=== PATIENT | male | born 1940 | race Caucasian/White ===

== ENCOUNTER 2025-06-10 12:49 | Inpatient (IN) | payer MEDICARE ==
[~2025-06-10] VITALS: Ht 185.4 cm; Wt 82.4 kg
[~2025-06-10 12:49] MED LIST: ASPIRIN EC325 MG PO; CELECOXIB200 MG PO; GABAPENTIN300 MG PO; HEALTHYLAX17 GM PO; IRON325 M1 PO; MIRALAX17 GM PO; NUCYNTA50 MG PO; OXYCODONE HCL5 MG PO; SENNA LAX8.6 MG PO; TRAMADOL HCL50 MG PO; ULTRAM50 MG PO; VITAMIN C500 M1 PO; XARELTO10 MG PO
--- OUTSIDE RECORDS SUMMARY | 2025-06-10 12:57 | XMS ---
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 Cami VISIT COUNT (12 MO.) [address] TOTAL 5 NOTE: Visits indicate total known visits. ED/UCC VISIT TRACKING (12 MO.) 06/10/2025 12:50 [facility] [place] TYPE: Emergency COMPLAINT: - FALL 06/02/2025 12:31 [facility] [place] TYPE: Emergency DIAGNOSES: - Dehydration - Enterostomy malfunction - Rash and other nonspecific skin eruption - general 05/31/2025 08:40 [facility] [place] TYPE: Emergency DIAGNOSES: - Adverse effect of antineoplastic and immunosuppressive drugs, initial encounter - Agranulocytosis secondary to cancer chemotherapy - Enterostomy malfunction - Erythematous condition, unspecified - GENERAL 05/30/2025 15:52 [facility] [place] TYPE: Emergency DIAGNOSES: - Encounter for attention to unspecified artificial opening - Enterostomy malfunction - Neutropenia, unspecified - CATHETER LEAKING 05/29/2025 19:29 [facility] [place] TYPE: Emergency DIAGNOSES: - Enterostomy malfunction - General INPATIENT VISIT TRACKING (12 MO.) 06/02/2025 12:31 [facility] OR TYPE: Medical Surgical DIAGNOSES: - Dehydration - Enterostomy malfunction - Rash and other nonspecific skin eruption [email or web address]
[2025-06-10 13:20] LABS: MCH 30.2 PG (25.7-32.2); MCHC 33.7 g/dL (32.3-36.5); MCV 89.5 fL (79.0-92.2); RBC 4.21 M/uL (4.63-6.08)
[2025-06-10 13:31] LABS: ALT (SGPT) 22.0 U/L (14-59); AST (SGOT) 29.0 U/L (15-37); GLOMERULAR FILTRATION RATE,EST 66.0 mL/min (>60); PROTEIN, TOTAL 6.5 g/dL (6.4-8.2); UREA NITROGEN 35.0 mg/dL (7-18)
[2025-06-10 13:38] LABS: BANDS, MANUAL DIFF 4; LYMPHOCYTES, MANUAL DIFF 10; MONOCYTES, MANUAL DIFF 1; NEUTROPHILS, MANUAL DIFF 85
[2025-06-10] MEDS ORDERED: POTASSIUM CHLORIDE 20 MEQ/15 ML CUP PO ONE ×2 (14:15→16:15)
[2025-06-10] MEDS ORDERED: SODIUM CHLORIDE 0.9% 1,000 ML IV PRN ×2 (14:15→16:15)
[2025-06-10] MEDS ORDERED: POTASSIUM CHLORIDE 10 MEQ/100 ML BAG IV SCH (16:15)
[2025-06-10 17:37] LABS: BLOOD/HGB, URINE SMALL (Negative); KETONE, URINE NEGATIVE (Negative); LEUK ESTERASE, URINE MODERATE (negative); NITRITE, URINE POSITIVE (negative)
[2025-06-10 17:45] LABS: BACTERIA, URINE NONE SEEN /hpf (negative); CASTS, URINE NONE SEEN \\lpf; CRYSTALS, URINE NONE SEEN (0-1+); EPITHELIAL CELLS, URINE SQUAMOUS 1+ /lpf (0-1+); REFLEX CULTURE, URINE Yes (No)
[2025-06-10] MEDS ORDERED: CEPHALEXIN500 M1 PO (19:00)
[2025-06-10] MEDS ORDERED: CEPHALEXIN MONOHYDRATE 500 MG CAP PO ONE (19:00)
[2025-06-10] MEDS ORDERED: ACETAMINOPHEN 325 MG TAB PO PRN (19:30)
[2025-06-10] MEDS ORDERED: LACTATED RINGER'S 1,000 ML IV SCH (19:30)
[2025-06-10 20:11] VITALS: BP 102/65
--- NOTE | 2025-06-10 20:33 | NUR ---
RECEIVED REPORT FROM SHAUN DUNCAN. PT MOVED TO [facility] BED BY [facility]. SKIN ASSESSMENT COMPLETE WITH SHAUN VACA. VS AND WT TAKEN. BRIEF CHANGED, SKIN CLEANSED, WOUND PHOTO TAKEN. REDNESS ON COCCYX, BARRIER APPLIED. PT REPORTS NO PAIN AT THIS TIME. CALL LIGHT WITHIN REACH.
--- NOTE | 2025-06-10 21:30 | NUR ---
PT REQUESTING APPLESAUCE, GIVEN. ASSISTED PT IN CHARGING PHONE. NO OTHER NEEDS AT THIS TIME, CALL LIGHT WITHIN REACH.
[2025-06-10 22:12] VITALS: BP 102/65
--- NOTE | 2025-06-10 23:12 | NUR ---
PT LAYING IN BED, EYES CLOSED, UNLABORED BREATHING. CALL LIGHT WITHIN REACH.
[2025-06-11] VITALS (12 sets, daily range): BP systolic 103–114; BP diastolic 55–72
--- NOTE | 2025-06-11 00:10 | NUR ---
PT LAYING IN BED, EYES CLOSED UNLABORED BREATHING. CALL LIGHT WITHIN REACH.
--- NOTE | 2025-06-11 00:44 | NUR ---
PT LAYING IN BED, EYES CLOSED, UNLABORED BREATHING. PTS LIGHTS TURNED OFF, TV PLAYING IN BACKGROUND, CALL LIGHT WITHIN REACH.
--- NOTE | 2025-06-11 02:20 | NUR ---
INVESTIGATIONS CONSULTANT AT BEDSIDE TAKING VITALS, PTS CALL LIGHT WITHIN REACH.
--- NOTE | 2025-06-11 04:01 | NUR ---
PT LAYING IN BED, EYES CLOSED, UNLABORED BREATHING. CALL LIGHT WITHIN RECAH.
[2025-06-11 05:25] LABS: BASOPHILS 0.4 % (0.2-1.2); EOSINOPHILS 0.2 % (0.8-7.0); LYMPHOCYTES 4.5 % (21.8-53.1); MCH 30.5 PG (25.7-32.2); MCHC 33.1 g/dL (32.3-36.5); MCV 92.1 fL (79.0-92.2); MONOCYTES 5.8 % (5.3-12.2); NEUTROPHILS 87.4 % (34.0-67.9); RBC 3.41 M/uL (4.63-6.08)
--- NOTE | 2025-06-11 05:36 | NUR ---
PT GIVEN YOGURT, FRESH WATER GIVEN. PTS LUNGS AND LLA WOUND ASSESSED. REPORTS NO OTHER NEEDS AT THIS TIME, CALL LIGHT WITHIN REACH.
[2025-06-11 06:18] LABS: GLOMERULAR FILTRATION RATE,EST 98.0 mL/min (>60); UREA NITROGEN 26.0 mg/dL (7-18)
--- NOTE | 2025-06-11 07:05 | NUR ---
REPORT REC'D FROM SENA. PT RESTING IN BED. THIS RN ASSUMES CARE. CALL CARABALLO IN REACH, BED IN LOW POSITION, SR UP X2. IV LR INFUSING TO LEFT PORTACATH @ 125NML/HR
[2025-06-11] MEDS ORDERED: POTASSIUM CHLORIDE 10 MEQ TABCR PO ONE (07:45)
[2025-06-11] MEDS ORDERED: ACETAMINOPHEN 325 MG TAB PO PRN (07:45)
[2025-06-11] MEDS ORDERED: LACTATED RINGER'S 1,000 ML IV SCH (07:45)
[2025-06-11 08:08] LABS: TSH, 3RD GENERATION 0.035 uIU/mL (0.358-3.740)
[2025-06-11] MEDS ORDERED: ENOXAPARIN SODIUM 40 MG/0.4 ML SYR SUB-Q SCH (09:00)
--- NOTE | 2025-06-11 11:00 | NUR ---
Spoke with Solomon. He currently is living in a ground floor apartment. He has esophageal cancer and is getting chemo from [facility] from Dr. Pablo and going to [facility] for radiation. Pt states he continues to become weaker and weaker. He cannot live at home alone. He also lost his charge cord for his Kangaroo pump. He has not had a feeding since Monday. This is his nutritional source. Pt states he has a J tube that became infected and now as a G tube. Pt has been in and out of the hospitals from [facility] and [facility]. Pt's treatment for cancer has been placed on hold. Pt now stating he cannot go home. We discussed SNF if he meets criteria for a 3 night IP stay. He has Medicare only and would qualify for a 20 day stay. He feels he will need something director long term care. He does not own a house and has very little money in savings. We discussed [facility] and an eval from the state for assistance to go to an [facility]. He would like to complete this eval. I called [facility] and David is the ornamental bronze worker. I assisted Solomon to call her. Pt lives in a ground level apartment. He villalba a cane, walker, shower chair and a feeding pump. He is unable to gravity feed his formula. He states as of the last few days he has not been able to walk. He was stuck on the toilet for several hours. I will cont. to assist pt for placement to SNF.
--- NOTE | 2025-06-11 11:08 | NUR ---
PT POSITIONED IN BED, NO C/O VERBALIZED. SIDERAILS UP X2, CALL CARABALLO IN REACH, BED IN LOW POSITION AND LOCKED. PT INSTRUCTED TO CALL FOR ASSISTANCE.
[2025-06-11] MEDS ORDERED: PHARMACY RENAL DOSE ADJUSTMENT 1 DOSE MISC PO SCH (12:00)
--- NOTE | 2025-06-11 12:10 | NUR ---
Called [facility] in [place]. Pt does have services through them. I let them know he has lost his director of cardiology service line. Amanda will write this up and pass on to customer service. She states most likely they will provide this pt with a new pump and cord. She will call me back if there are any issues.
--- NOTE | 2025-06-11 12:33 | NUR ---
SNF REFERRAL FAXED TO [facility]. DID RECIEVE CALL FROM [facility] WITH SCHEDULED FINANCIAL EVAL FOR RESIDENTIAL MEDICAID ON 06/23/2025 @ 0800 AND FLATWARE MAKER APPONTMENT ON 07/02/25 AT 1:30 PM WITH DESIREE.
--- NOTE | 2025-06-11 12:38 | NUR ---
Received a call from David at [facility]. 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 He has an apointment for a physical eval 07/02/25. I will contact [facility] next week and update where pt will be staying.
--- NOTE | 2025-06-11 13:37 | NUR ---
PT PORT FLUSHED, BLOOD RETURN NOTED WITH POSTIONING WITH LEFT ARM RAISED OVERHEAD. IV LR STARTED @ 100ML/HR WITH NEW TUBING
--- NOTE | 2025-06-11 14:01 | NUR ---
PATIENT'S DAILY CHG WIPEDOWN COMPLETED BY THIS MACHINE CRATER. GOWN AND BED LINENS WERE CHANGED.
--- NOTE | 2025-06-11 14:04 | NUR ---
UR CLINICAL REVIEW: 2 MN FOR [facility]-PER AUTO SERVICE DISPATCHER MEET INPT FOR WEAKNES/FTT WITH NEED FOR NUTRITION, IVF, PT/OT, SERIAL MONITORING MEDICARE INPT 06/11/25 @ 0745 ORDER MATCHES REG NO AUTH REQUIRED PER MEDICARE GUIDELINES DISCHARGE TO SNF WHEN MEDICALLY STABLE
--- NOTE | 2025-06-11 14:15 | NUR ---
[facility] FROM [facility] IN TO VERIFY PORT. BLOOD RETURN NOTED, NO DISTRESS. IVF LR REMAINS INFUSING AT 100/HR.
--- NOTE | 2025-06-11 14:20 | NUR ---
PATIENT WAS WORKING WITH OT, LIBRARY MEDIA TECHNICIAN WAS ASSISTING, WHILE THEY WERE BUSY I CHANGED LINENS, NOELLE AND BREIF. AND WE ASSISTED PATIENT BACK TO BED, CALL LIGHT WITH IN REACH AND NOTHING ELSE NEEDED AT THIS TIME.
--- NOTE | 2025-06-11 14:30 | NUR ---
Notified by Rosas at [facility], they will accept this pt on Monday.
[2025-06-11] MEDS ORDERED: GABAPENTIN 300 MG CAP PO SCH (15:00)
--- NOTE | 2025-06-11 17:10 | NUR ---
G-TUBE DRESSING CHANGED, NEW DRAIN GAUZE PLACED. PREVIOUS J TUBE SITE CLEANSED WITH NS AND GAUZE APPLIED, SECURED WITH TAPE, BARRIER CREAM APPLIED TO REDDENED ABD AREA.
--- NOTE | 2025-06-11 18:24 | NUR ---
PATIENT IS IN HIS CHAIR AT THIS TIME, CAKE TESTER CHARTED VITALS AND I&O'S, CALL LIGHT WITH IN REACH AND NOTHING ELSE NEEDED AT THIS TIME.
--- NOTE | 2025-06-11 18:53 | NUR ---
PT PLEASANT AND COOPERATIVE WITH CARE T/O SHIFT. DRESSING TO G-TUBE AND PREVIOUS J-TUBE SITE CHANGED. TUBE FEEDING WITH JEVITY 1.5 STARTED AT 80ML/HR. IV LR REMAINS AT 100ML/HR TO PORTACATH. PT WORKED WITH PT, MAX ASSIST X2. USING CALL CARABALLO APPROPRIATELY. CALL CARABALLO AND PERSONAL ITEMS IN REACH, BED IN LOW POSITION AND LOCKED, SIDERAILS UP X4.
[2025-06-11] MEDS ORDERED: SALINE LOCK FLUSH 5 ML SYR IV PRN (19:00)
--- NOTE | 2025-06-11 19:35 | NUR ---
RECEIVED REPORT FROM SHAUN MILLER. PT LAYING IN BED REPORTS NO NEEDS AT THIS TIME, IV FLUIDS AND TUBE FEEDING INFUSING PER ORDER. CALL LIGHT WITHIN REACH.
--- NOTE | 2025-06-11 20:33 | NUR ---
FISCAL ACCOUNTING CLERK OBTAINED VITALS AND I&O. PT STATES NO NEEDS AT THIS TIME. CALL LIGHT WITHIN REACH AND BED ALARM ON.
[2025-06-11] MEDS ORDERED: ASPIRIN 325 MG TABEC PO SCH (21:00)
[2025-06-11] MEDS ORDERED: MELATONIN 3 MG TAB PO PRN (21:00)
--- NOTE | 2025-06-11 21:05 | NUR ---
PTS BRIEF CHANGED, CHG WIPE COMPLETED, LINEN AND GOWN CHANGED, ALLEVYN PLACED ON COCCYX. PT ASSESSED, REPORTS NO OTHER NEEDS AT THIS TIME, CALL LIGHT WITHIN REACH.
--- NOTE | 2025-06-11 22:52 | NUR ---
PT REPOSITIONED IN A FLOATING POSITION WITH PILLOWS UNDER BOTH HIPS. NEW IV FLUID BAG INFUSING. PT REPORTS NO OTHER NEEDS AT THIS TIME, LIGHTS OFF, TV ON, CALL LIGHT WITHIN REACH.
[2025-06-12] VITALS (12 sets, daily range): BP systolic 86–118; BP diastolic 48–85
--- NOTE | 2025-06-12 01:18 | NUR ---
30ML FLUSH THROUGH FEEDING TUBE PER ORDER. PT TOLERATED WELL, NO OTHER NEEDS REPORTED AT THIS TIME, CALL LIGHT WITHIN REACH.
--- NOTE | 2025-06-12 03:36 | NUR ---
PT IN BED WITH EYES CLOSED, UNLABORED BREATHING. NO NEEDS AT THIS TIME, CALL LIGHT WITHIN REACH.
[2025-06-12 05:28] LABS: BASOPHILS 0.3 % (0.2-1.2); EOSINOPHILS 0.3 % (0.8-7.0); LYMPHOCYTES 5.6 % (21.8-53.1); MCH 30.4 PG (25.7-32.2); MCHC 33.2 g/dL (32.3-36.5); MCV 91.7 fL (79.0-92.2); MONOCYTES 5.0 % (5.3-12.2); NEUTROPHILS 86.9 % (34.0-67.9); RBC 3.12 M/uL (4.63-6.08)
[2025-06-12 05:44] LABS: ALT (SGPT) 16.0 U/L (14-59); AST (SGOT) 19.0 U/L (15-37); GLOMERULAR FILTRATION RATE,EST 97.0 mL/min (>60); PROTEIN, TOTAL 4.4 g/dL (6.4-8.2); UREA NITROGEN 19.0 mg/dL (7-18)
--- NOTE | 2025-06-12 06:12 | NUR ---
SANITATION SUPERVISOR OBTAINED VITALS AND I&O. PT PUREWICK LEAKED. THIS SANITATION SUPERVISOR AND SHAUN ORTIZ CHANGED PT PUREWICK, BREIF, AND CHUCKS PAD. PT STATES NO FURTHER NEEDS AT THIS TIME. CALL LIGHT WITHIN REACH.
--- NOTE | 2025-06-12 06:43 | NUR ---
MANUAL B/P OBTAINED. RN NOTIFIED.
--- NOTE | 2025-06-12 07:06 | NUR ---
RECIEVED REPORT FROM SHAUN CUMMINGS. PT IS RESTING IN BED WITH EYES OPEN. G TUBE RUNNING PER ORDERS, ABDOMINAL DRESSING CLEAN DRY AND INTACT. RR EVEN AND UNLABORED. CALL BUTTON IN HAND.
--- NOTE | 2025-06-12 07:24 | EKG ---
[facility] [address] [place] [address] Signed Atrial fibrillation with rapid ventricular response Abnormal ECG When compared with ECG of 23-APR-2019 09:34, Atrial fibrillation has replaced Sinus rhythm Confirmed by Tere Matute DO ([id number]) on 06/12/2025 7:24:34 AM Electronically Signed By: TERE MATUTE DO 06/12/25 0724 PATIENT NAME: HERMILA PEREZ Electrocardiogram DATE OF : 44 PHYSICIAN: TERE MATUTE DO REPORT #: [id number] REPORT IS CONFIDENTIAL AND NOT TO BE RELEASED WITHOUT AUTHORIZATION
[2025-06-12] MEDS ORDERED: LACTATED RINGER'S 1,000 ML IV ONE (07:45)
--- NOTE | 2025-06-12 07:50 | NUR ---
BLOOD PRESSURE RECHECKED AT THIS TIME. NOIFIED OF PATIENT BLOOD PRESSURE AND MAP. MD STATED TO CONTINUE WITH BOLUS ADMINISTRATION.
[2025-06-12] MEDS ORDERED: MAGNESIUM OXIDE 400 MG TABLET PO ONE (08:00)
--- NOTE | 2025-06-12 08:12 | NUR ---
PATIENT IN BED AT THIS TIME. HEALTH AND FITNESS INSTRUCTOR CHARTED HOURLY ROUNDS. CALL LIGHT WITHIN REACH, NO FURTHER NEEDS.
--- NOTE | 2025-06-12 09:15 | NUR ---
SHAUN AMBRIZ REPORTED PT'S PORT WAS NOT FLUSHING OR DRAWING BACK BLOOD; PORT WAS NOT INFUSING LR BOLUS. AUTOMOBILE LIGHTS ASSEMBLER, SHAUN TELLEZ, SHAUN AMBRIZ AND THIS RN IN ROOM TO CHANGE DRESSING AND RE-ACCESS PORT. RE-ACCESSED PORT FLUSHED AND CELESTE BACK BLOOD. ONCE RE-DRESSED, PORT WOULD NOT FLUSH OR DRAW BACK BLOOD. IV FLUIDS STOPPED. AUTOMOBILE LIGHTS ASSEMBLER REPORTED SPEAKING WITH FLOAT RN REGARDING POTENTIAL U/S IV.
--- NOTE | 2025-06-12 10:24 | NUR ---
PATIENT IN BED AT THIS TIME. HOSPITAL ACCOUNT MANAGER CHARTED VITALS AND I&O'S. CALL LIGHT WITHIN REACH, NO FURTHER NEEDS.
[2025-06-12] MEDS ORDERED: HEParin SOD (PORCINE) 500 UNIT/5 ML ML IV ONE (10:45)
--- NOTE | 2025-06-12 11:04 | NUR ---
PATIENT IS WORKING WITH PHYSICAL THERAPY AT THIS TIME.
--- NOTE | 2025-06-12 11:21 | NUR ---
JIMMY ARIZA AND MARISSA PHYSICAL THERAPIST ARE IN THE ROOM AT THIS TIME. PATIENT HAD A BOWEL MOVEMENT. ALEVYN DRESSING PLACED ON THE BUTTOCKS/COCCYX FOR REDNESS. JIMMY DN PHYSICAL THERAPIST EXPRESSED NO FURTHER NEEDS AT THIS TIME.
--- NOTE | 2025-06-12 11:58 | NUR ---
PATIENT IN CHAIR AT THIS TIME. THIS AUDIO VISUAL PROJECT MANAGER ASSISTED PATIENT TO CHAIR WITH PHYSICAL THERAPY AND PROVIDED PATIENT WITH NEW BRIEF, PUREWICK, GOWN, AND LINENS. THIS AUDIO VISUAL PROJECT MANAGER WIPED PATIENT DOWN WITH CHG WIPES. CALL LIGHT WITHIN REACH, NO FURTHER NEEDS AT THIS TIME.
[2025-06-12] MEDS ORDERED: POTASSIUM20 MEQ/15 PT (12:34)
--- NOTE | 2025-06-12 12:50 | NUR ---
FEEDING TUBE STOPPED AND FLUSHED AT THIS TIME. PORT ALSO DE-ACCESSED AT THIS TIME. PT DENIES ANY NEEDS. CALL LIGHT AND PERSONAL BELONGINGS ARE WITHIN REACH.
--- NOTE | 2025-06-12 12:57 | NUR ---
MED REC COMPLETE
--- NOTE | 2025-06-12 13:37 | NUR ---
PT SITTING UP IN CHAIR WITH EYES OPEN.RR EVEN AND UNLABORED. CALL LIGHT AND PERSONAL BELONGINGS ARE WITHIN REACH.
--- NOTE | 2025-06-12 14:01 | NUR ---
PATIENT IN CHAIR AT THIS TIME. FOREST LANDSCAPE ECOLOGY PROFESSOR CHARTED VITALS AND I&O'S. CALL LIGHT WITHIN REACH, NO FURTHER NEEDS.
--- NOTE | 2025-06-12 15:49 | NUR ---
PT RESTING IN CHAIR WITH EYES CLOSED. RR EVEN AND UNLABORED. CALL LIGHT AND PERSONAL BELONGINGS ARE WITHIN REACH.
--- NOTE | 2025-06-12 16:28 | NUR ---
PATIENT IS SITTING IN THE CHAIR WITH EYES OPEN AND RESPIRATIONS ARE EVEN AND UNLABORED. PATIENT WITH LOWER EXTREMITIES ELEVATED. TV IS ON. PATIENT WAVED AT RN WHILE WALKING BY. CALL LIGHT AND PERSONAL BELONGINGS ARE WITHIN REACH.
--- NOTE | 2025-06-12 16:36 | NUR ---
PT RESTING IN CHAIR WITH EYES CLOSED. RR EVEN AND UNLABORED. CALL LIGHT AND PERSONAL BELONGINGS ARE WITHIN REACH.
--- NOTE | 2025-06-12 18:21 | NUR ---
PT RESTING IN CHAIR WITH EYES OPEN. RR EVEN AND UNLABORED. CALL LIGHT AND PERSONAL BELONGINGS ARE WITHIN REACH.
--- NOTE | 2025-06-12 18:42 | NUR ---
30 ML FLUSH ADMINISTERED TO G-TUBE. KANGAROO TUBE FEEDING SET UP BY SHAUN AMBRIZ. KANGAROO PUMP RUNNING AT 80 ML/HR. PT REMAINS SITTING IN CHAIR AT THIS TIME. CALL LIGHT AND PERSONAL BELONGINGS ARE WITHIN REACH.
--- NOTE | 2025-06-12 19:20 | NUR ---
RECEIVED REPORT FROM SHAUN MACARIO. PT SITTING UP IN CHAIR WITH FAMILY AT BEDSIDE, REPORTS NO NEEDS AT THIS TIME. FEEDING TUBE AND IV FLUIDS RUNNING PER ORDER. CALL LIGHT WITHIN REACH.
--- NOTE | 2025-06-12 20:50 | NUR ---
PTS VS TAKEN, PURWICK CANISTER EMPTIED, FROZEN STRAWBERRY POPSICLE GIVEN. ASSESSMENT COMPLETED, FEEDING TUBE AND IV FLUIDS RUNNING PER ORDER. NO OTHER NEEDS AT THIS TIME, CALL LIGTH WITHIN REACH.
--- NOTE | 2025-06-12 21:30 | NUR ---
PT ASSISTED BACK TO BED WITH 2PA/FWW/AND GAIT BELT. PT HAD A SMALL SOFT BROWN BM, MIKE CARE COMPLETED. NO OTHER NEEDS AT THIS TIME CALL LIGHT WITHIN REACH.
--- NOTE | 2025-06-12 23:44 | NUR ---
PT LAYING IN BED REPORTS HE WANTS HIS TV OFF AND LIGHTS OFF, COMPLETED. NO OTHER NEEDS AT THIS TIME, CALL LIGHT WITHIN REACH.
[2025-06-13] VITALS (9 sets, daily range): BP systolic 92–112; BP diastolic 53–66
--- NOTE | 2025-06-13 01:00 | NUR ---
PTS FEEDING TUBE FLUSHED PER ORDER. PT LAYING WITH EYES CLOSED, UNLABORED BREATHING. NO OTHER NEEDS AT THIS TIME, CALL LIGHT WITHIN REACH.
--- NOTE | 2025-06-13 03:40 | NUR ---
PT LAYING IN BED, EYES CLOSED, UNLABORED BREATHING. NO NEEDS AT THIS TIME, CALL LIGHT WITHIN REACH.
[2025-06-13 06:19] LABS: ALT (SGPT) 16.0 U/L (14-59); AST (SGOT) 19.0 U/L (15-37); GLOMERULAR FILTRATION RATE,EST 107.0 mL/min (>60); PHOSPHORUS, INORGANIC 2.3 mg/dL (2.5-4.9); PROTEIN, TOTAL 4.5 g/dL (6.4-8.2); UREA NITROGEN 13.0 mg/dL (7-18)
[2025-06-13] MEDS ORDERED: SODIUM PHOSPHATE 30 MMOL in DEXTROSE 5% 250 ML IV ONE (06:45)
[2025-06-13] MEDS ORDERED: MAGNESIUM SULFATE 2 GM/50 ML BAG IV SCH (06:45)
--- NOTE | 2025-06-13 07:14 | NUR ---
RECIEVED REPORT FROM SHAUN CMUMINGS. PT IS RESTING IN BED WITH EYES CLOSED. RR EVEN AND UNLABORED. CALL BUTTON IS WITHIN REACH.
--- NOTE | 2025-06-13 07:14 | NUR ---
UR DC REVIEW: CONTINUED NEED FOR IV ANTIBIOTICS, IV ELECTROLYTE REPLACEMENT, PT/OT PLAN TO DC TO [facility] FACILITY ON MONDAY, NO FACILITY ABLE TO ACCEPT PATIENT BEFORE 06/16/2025. ADD: 06/16/2025
--- NOTE | 2025-06-13 09:21 | NUR ---
UPDATES FOR SNF REFERRAL FAXED TO [facility]
--- NOTE | 2025-06-13 09:26 | NUR ---
PATIENT STILL PENDING ACCEPTANCE AT SNF. PATIENT AWARE AND STILL AGREEABLE TO SNF.
--- NOTE | 2025-06-13 09:57 | NUR ---
PATIENT IS SITTING IN THE CHAIR WITH BILATERAL LOWER EXTREMITIES ELEVATED. PATIENT WITH EYES OPEN AND RESPIRATIONS ARE EVEN AND UNLABORED. CALL LIGHT AND PERSONAL BELONGINGS ARE WITHIN REACH.
--- NOTE | 2025-06-13 10:35 | NUR ---
NOTIFIED OF PT'S LOW BP. TO PUT ORDERS IN FOR LR BOLUS.
[2025-06-13] MEDS ORDERED: LACTATED RINGER'S 1,000 ML IV PRN (10:45)
--- NOTE | 2025-06-13 11:28 | NUR ---
JIMMY JOVEL HELPED MEASURE PT V.S. AND I&O'S. JIMMY OJVEL CHANGED PT BED LINENS AND HELPED PHYSICAL THERAPY ASSIST PATIENT IN ROOM. PT HAD AN INCONTINENT INCIDENT WHILE WITH THYSICAL THERAPY. JIMMY JOVEL PROVIDED PERINEAL CARE AND CHANGED PT BRIEFS. PT WAS LEFT ON CHAIR WITH CALL LIGHT IN REACH, NO FURTHER NEEDS.
[2025-06-13 11:33] LABS: IRON BINDING CAPACITY TOTAL 92 ug/dL (240-450); IRON,SERUM OR PLASMA 65 ug/dL (45-182); TRANSFERRIN SATURATION 71 %sat (20-50)
--- NOTE | 2025-06-13 11:36 | NUR ---
PT SITTING UP IN CHAIR, WATCHING TV. EYES ARE OPEN, RR EVEN AND UNLABORED. CALL LIGHT AND PERSONAL BELONGINGS ARE WITHIN REACH.
--- NOTE | 2025-06-13 12:37 | NUR ---
PT RESTING IN CHAIR WITH EYES CLOSED. RR EVEN AND UNLABORED. CALL LIGHT IS WITHIN REACH.
--- NOTE | 2025-06-13 13:45 | NUR ---
PT RESTING IN CHAIR WITH EYES OPEN, WATCHING TV. CALL LIGHT AND PERSONAL BELONGINGS ARE WITHIN REACH.
--- NOTE | 2025-06-13 13:56 | NUR ---
IN ROOM WITH RN'S COOKIE PEREZ AND PB TO REPOSITION PT. PT'S PROTHESIS PLACED ON AND ASSISTED TO STANDING POSITIONING, WITH PILLOWS BEING PLACED AND REPOSITIONED IN CHAIR. PT RE-SEATED WITH PERSONAL BELONGINGS AND CALL LIGHT IN REACH.
--- NOTE | 2025-06-13 14:47 | NUR ---
TUBE FEEDING COMPLETE. PEG TUBE FLUSHED WITH 30 ML OF WATER. PATIENT TOLERATED WELL. PEG TUBING AND BAG THROWN AWAY. PATIENT TOLERATED WELL WITH NO COMPLAINTS OF NAUSEA OR VOMITING. PATIENT REMAINS SITTING IN THE RECLINER WITH EYES OPEN AND RESPIRATIONS ARE EVEN AND UNLABORED. PATIENT STATED NO FURTHER NEEDS AT THIS TIME. CALL LIGHT AND PERSONAL BELONGINGS ARE WITHIN REACH. JIMMY JOVEL ENTERED THE ROOM AT THIS TIME TO CHANGE MALE PUREWICK.
--- NOTE | 2025-06-13 14:55 | NUR ---
JIMMY JOVEL PROVIDED PERINEAL CARE FOR PATIENT AND CHANGED PATIENT INTO NEW PUREWICK. CALL LIGHT LEFT WITHIN REACH, NO FURTHER NEEDS.
--- NOTE | 2025-06-13 15:41 | NUR ---
PATIENT IS SITTING IN THE CHAIR WITH BILATERAL LOWER EXTREMITIES ELEVATED. PATIENT WITH EYES OPEN AND RESPIRATIONS ARE EVEN AND UNLABORED. TV IS ON. CALL LIGHT AND PERSONAL BELONGINGS ARE WITHIN REACH.
[2025-06-13] MEDS ORDERED: K-PHOS NEUTRAL250 MG PT (16:05)
--- NOTE | 2025-06-13 17:21 | NUR ---
PT UP IN CHAIR WITH DINNER TRAY. CALL LIGHT AND PERSONAL BELONGINGS ARE WITHIN REACH.
--- NOTE | 2025-06-13 17:42 | NUR ---
PATIENT IN BED AT THIS TME. FIELD ARTILLERY OPERATIONS MAN CHARTED VITALS AND I&O'S. CALL LIGHT WITHIN REACH, NO FURTHER NEEDS.
--- NOTE | 2025-06-13 18:41 | NUR ---
JEVITY 1.5 TUBE FEEDING STARTED AT THIS TIME. SPLIT GAUZE AROUND TUBE ENTRANCE REPLACED. CALL LIGHT AND PERSONAL BELONGINGS ARE WITHIN REACH. PT DENIES ANY NEEDS.
--- NOTE | 2025-06-13 19:05 | NUR ---
REPORT RECEIVED FROM BRYAN DUNN. pt RESTING IN THE CHAIR. BOARD UPDATED. pt DENIES ANY NEEDS AT THIS TIME. CALL LIGHT WITHIN REACH.
--- NOTE | 2025-06-13 20:19 | NUR ---
pt CALLED TO USE THE BED PARKER. pt BACK TO BED AND ON THE BED PARKER. pt 2PA WITH FWW. pt DENIES ANY OTHER NEEDS AT THIS TIME. CALL LIGHT WITHIN REACH.
--- NOTE | 2025-06-13 21:20 | NUR ---
IN RM TO DO ASSESSMENT. pt VITAL SIGNS DONE BY MESS COOK. SCHEDULED MEDS ADMINISTERED. pt PEG TUBE FLUSHED WITH 30mL PER ORDER. PEG TUBE RUNNING AT 80mL/HR PER ORDER. pt DENIES ANY OTHER NEEDS AT THIS TIME. CALL LIGHT WITHIN REACH.
--- NOTE | 2025-06-13 23:53 | NUR ---
pt RESTING IN THE BED WITH EYES CLOSED. RR EVEN AND UNLABORED. CALL LIGHT WITHIN REACH.
[2025-06-14] VITALS (9 sets, daily range): BP systolic 92–121; BP diastolic 55–75
--- NOTE | 2025-06-14 01:42 | NUR ---
pt RESTING IN THE BED WITH EYES CLOSED. RR EVEN AND UNLABORED. CALL LIGHT WITHIN REACH.
--- NOTE | 2025-06-14 03:06 | NUR ---
pt RESTING IN THE BED WITH EYES CLOSED. RR EVEN AND UNLABORED. CALL LIGHT WITHIN REACH.
--- NOTE | 2025-06-14 04:37 | NUR ---
pt RESTING IN THE BED WITH EYES CLOSED. PEG TUBE FLUSHED WITH 30mL OF TAP WATER. PURE WICK CANISTER EMPTIED. NO OTHER NEEDS AT THIS TIME. CALL LIGHT WITHIN REACH.
[2025-06-14 05:30] LABS: ALT (SGPT) 24.0 U/L (14-59); AST (SGOT) 27.0 U/L (15-37); GLOMERULAR FILTRATION RATE,EST 109.0 mL/min (>60); PHOSPHORUS, INORGANIC 2.7 mg/dL (2.5-4.9); PROTEIN, TOTAL 4.5 g/dL (6.4-8.2); UREA NITROGEN 12.0 mg/dL (7-18)
--- NOTE | 2025-06-14 06:58 | NUR ---
PATIENT IS LYING IN BED WITH HOB ELEVATED. PATIENT WITH EYES CLOSED AND RESPIRATIONS ARE EVEN AND UNLABORED. CALL LIGHT AND PERSONAL BELONGINGS ARE WITHIN REACH.
--- NOTE | 2025-06-14 07:42 | NUR ---
PATIENT IS LYING IN BED WITH HOB ELEVATED. PATIENT WITH EYES CLOSED AND RESPIRATIONS ARE EVEN AND UNLABORED. CALL LIGHT AND PERSONAL BELONGINGS ARE WITHIN REACH. LIGHT IS ON IN THE ROOM.
--- NOTE | 2025-06-14 08:22 | NUR ---
Verbal order obtained from Dr. Santamaria to add a CBC to this patient's labs this morning. Order entered.
[2025-06-14 08:24] LABS: MCH 30.2 PG (25.7-32.2); MCHC 32.7 g/dL (32.3-36.5); MCV 92.6 fL (79.0-92.2); RBC 3.24 M/uL (4.63-6.08)
[2025-06-14 08:59] LABS: BANDS, MANUAL DIFF 3; LYMPHOCYTES, MANUAL DIFF 13; MONOCYTES, MANUAL DIFF 5; NEUTROPHILS, MANUAL DIFF 79
--- NOTE | 2025-06-14 09:01 | NUR ---
JIMMY JOVEL UPDATED PATIENT WHITE BOARD AND OFFERED PATIENT AM AND ORAL CARE. PATIENT DECLINED AND JIMMY JOVEL STATED HE WOULD VISIT WITH HIM IN AN HOUR TO CHECK PT VS AND I&O. CALL LIGHT WITHIN REACH, NO FURTHER NEEDS
--- NOTE | 2025-06-14 09:10 | NUR ---
PATIENT IS LYING IN BED WITH HOB ELEVATED. PATIENT WITH EYES OPEN AND RESPIRATIONS ARE EVEN AND UNLABORED. PATIENT IS EATING YOGURT. IV PUMP RESTARTED. PATIENT STATED NO FURTHER NEEDS AT THIS TIME. CALL LIGHT AND PERSONAL BELONGINGS ARE WITHIN REACH.
--- NOTE | 2025-06-14 10:03 | NUR ---
HEMOCCULT STOOL COMPLETE. TEST IS NEGATIVE. PATIENT IS SITTING IN THE CHAIR WITH BILATERAL LOWER EXTREMITIES ELEVATED. PATIENT STATED NO FURTHER NEEDS AT THIS TIME. CALL LIGHT AND PERSONAL BELONGINGS ARE WITHIN REACH.
--- NOTE | 2025-06-14 10:33 | NUR ---
JIMMY JOVEL ASSISTED PHYSICAL THERAPY WITH ASSISTING PATIENT ON GETTING HIM UP TO THE CHAIR. JIMMY JOVEL MEASURED VS AND I&O'S. WHILE ON CHAIR PT HAD AN INCONTINENCE BM AND JIMMY JOVEL PROVIDED PERINEAL CARE AND REPORTED STOOL SAMPLE TO NURSES. JIMMY JOVEL CHANGED BED LINENS AND CLEANED AND ORGANIZED ROOM. CALL LIGHT LEFT WITHIN REACH. NO FURTHER NEEDS AT THIS TIME.
--- NOTE | 2025-06-14 11:05 | NUR ---
PATIENT IS SITTING IN THE CHAIR WITH BILATERAL LOWER EXTREMITIES ELEVATED. PATIENT IS SPEAKING WITH A VISITOR WHO IS SITTING ON THE COUCH. CALL LIGHT AND PERSONAL BELONGINGS ARE WITHIN REACH.
[2025-06-14] MEDS ORDERED: LANSOPRAZOLE 30 MG TABDIS PT SCH ×2 (12:18→21:00)
--- NOTE | 2025-06-14 12:26 | NUR ---
PATIENT IS SITTING IN THE CHAIR WITH BLE ELEVATED. PATIENT WITH EYES OPEN AND RESPIRATIONS ARE EVEN AND UNLABORED. PATIENT IS WATCHING TV WITH HIS LUNCH TRAY SET UP IN FRONT OF HIM. CALL LIGHT AND PERSONAL BELONGINGS ARE WITHIN REACH.
--- NOTE | 2025-06-14 12:53 | NUR ---
TUBE FEEDING COMPLETE AT THIS TIME. PEG TUBE FLUSHED WITH 30 ML WATER. KANGAROO PUMP CLEARED OF INTAKE FLUIDS AND DOCUMENTED IN THE CHART. PATIENT STATED NO FURTHER NEEDS AT THIS TIME. CALL LIGHT AND PERSONAL BELONGINGS ARE WITHIN REACH.
--- NOTE | 2025-06-14 13:39 | NUR ---
PATIENT IS SITTING IN THE CHAIR WITH BILATERAL LOWER EXTREMITIES ELEVATED. PATIENT WITH EYES OPEN AND RESPIRATIONS ARE EVEN AND UNLABORED. TV IS ON. JIMMY JOVEL IS IN THE ROOM DOING VITALS, INTAKE/OUTPUT, AND CHANGING THE PUREWICK. CALL LIGHT AND PERSONAL BELONGINGS ARE WITHIN REACH.
--- NOTE | 2025-06-14 14:31 | NUR ---
PATIENT IS SITTING IN THE CHAIR WITH BILATERAL LOWER EXTREMITIES ELEVATED. PATIENT IS TALKING ON THE PHONE. TV IS ON. CALL LIGHT AND PERSONAL BELONGINGS ARE WITHIN REACH.
--- NOTE | 2025-06-14 15:02 | NUR ---
JIMMY JOVEL CHANGED PATIENT EXTERNAL CATHETER AT 1345 AND PROVIDED MIKE CARE. PATIENT STATED NO FURTHER NEEDS AT THIS TIME, CALL LIGHT WITHIN REACH
--- NOTE | 2025-06-14 15:13 | NUR ---
PATIENT IS SITTING IN THE CHAIR WITH BILATERAL LOWER EXTREMITIES ELEVATED. TV IS ON. PATIENT WITH EYES OPEN AND RESPIRATIONS ARE EVEN AND UNLABORED. CALL LIGHT AND PERSONAL BELONGINGS ARE WITHIN REACH.
--- NOTE | 2025-06-14 17:16 | NUR ---
PATIENT IS SITTING IN THE CHAIR WITH BILATERAL LOWER EXTREMITIES ELEVATED. PATIENT WITH DINNER TRAY SET UP IN FRONT OF HIM. PATIENT WITH EYES OPEN AND RESPIRATIONS ARE EVEN AND UNLABORED. CALL LIGHT AND PERSONAL BELONGINGS ARE WITHIN REACH.
--- NOTE | 2025-06-14 18:23 | NUR ---
JIMMY JOVEL ASKED PT NURSE TO ASSIST WITH TRANSFERING PATIENT FROM CHAIR TO BED. PATIENT HAD A BM WHILE TRANSFERRING ONTO BED. NURSE BROUGHT BSC AND WE WERE ABLE TO GET HIM ONTO THE BED. CALL LIGHT WITHIN REACH, NO FURTHER NEEDS.
--- NOTE | 2025-06-14 18:46 | NUR ---
PEG TUBE FLUSHED WITH 30 ML OF WATER. NEW BAG OF TUBE FEEDING STARTED AT THIS TIME. PEG TUBE FEEDING IS INFUSING AT 80 ML/HR. PEG TUBE SPLIT GAUZE CHANGED AT THIS TIME. REDNESS NOTED TO THE OLD PEG TUBE SITE. PATIENT REPORTS NO IRRITATION OR PAIN. PATIENT STATED NO FURTHER NEEDS AT THIS TIME. CALL LIGHT AND PERSONAL BELONGINGS ARE WITHIN REACH.
--- NOTE | 2025-06-14 19:23 | NUR ---
VERBAL REPORT RECEIVED FROM PB DUNN. PATIENT IS RESTING AWAKE IN BED AT THIS TIME WATCHING TV. DENIES ANY NEEDS AT THIS TIME. CALL LIGHT IN REACH.
--- NOTE | 2025-06-14 20:20 | NUR ---
MD NOTIFIED REGARDING MEDICATION AVAILABILITY, NEW ORDERS RECEIVED (SEE EMAR).
--- NOTE | 2025-06-14 22:26 | NUR ---
PATIENT RESTING IN BED AWAKE WATCHING TV. PATIENT DENIES ANY NEEDS AT THIS UCHE. CALL LIGHT IN REACH.
--- NOTE | 2025-06-14 23:53 | NUR ---
PATIENT RESTING IN BED EYES CLOSED. RESPIRATIONS EVEN AND UNLABORED. CALL LIGHT WITHIN REACH.
[2025-06-15] VITALS (8 sets, daily range): BP systolic 102–122; BP diastolic 59–68
--- NOTE | 2025-06-15 01:58 | NUR ---
PATIENT RESTING IN BED EYES CLOSED, RESPIRATIONS EVEN AND UNLABORED. HOB ELEVATED. CALL LIGHT IN REACH.
--- NOTE | 2025-06-15 03:44 | NUR ---
PATIENT IS RESTING IN BED EYES CLOSED, RESPIRATIONS EVEN AND UNLABORED. HOB ELEVATED. CALL LIGHT IN REACH.
[2025-06-15 05:12] LABS: MCH 29.9 PG (25.7-32.2); MCHC 32.9 g/dL (32.3-36.5); MCV 91.0 fL (79.0-92.2); RBC 3.24 M/uL (4.63-6.08)
[2025-06-15 05:34] LABS: ALT (SGPT) 25.0 U/L (14-59); AST (SGOT) 25.0 U/L (15-37); GLOMERULAR FILTRATION RATE,EST 105.0 mL/min (>60); PHOSPHORUS, INORGANIC 2.0 mg/dL (2.5-4.9); PROTEIN, TOTAL 4.9 g/dL (6.4-8.2); UREA NITROGEN 9.0 mg/dL (7-18)
--- NOTE | 2025-06-15 05:44 | NUR ---
PEG TUBE FLUSHED WITH 30ML OF TAP WATER. FRESH LINEN, GOWN AND PUREWICK CHANGE. HOB ELEVATED. FRESH ICE WATER PROVIDED. PATIENT DENIES FURTHER NEEDS AT THIS TIME. CALL LIGHT IN REACH.
[2025-06-15 06:08] LABS: EOSINOPHILS, MANUAL DIFF 1; LYMPHOCYTES, MANUAL DIFF 27; MONOCYTES, MANUAL DIFF 6; NEUTROPHILS, MANUAL DIFF 66
--- NOTE | 2025-06-15 07:06 | NUR ---
REPORT RECEIVED FROM WAREHOUSING TECHNICIAN RN ALLEN AND MARISSA. JIMMY PARRA IS IN THE ROOM AT THIS TIME AND ASSISTING PATIENT ON THE BED PARKER.
--- NOTE | 2025-06-15 08:44 | NUR ---
HOURLY ROUNDING PATIENTLAYING IN BED, PATIENT HAD A BED BATH AND GOWN CHANGE. NO REQUEST FROM PATIENT AT THIS TIME CALL LIGHT HAS BEEN PLACED WITHIN REACH
--- NOTE | 2025-06-15 09:09 | NUR ---
PATIENT IS LYING IN BED WITH HOB ELEVATED. PATIENT WITH EYES OPEN AND RESPIRATIONS ARE EVEN AND UNLABORED. TV IS ON. CALL LIGHT AND PERSONAL BELONGINGS ARE WITHIN REACH.
--- NOTE | 2025-06-15 09:30 | NUR ---
HOURLY ROUNDING PATIENT INCOT. ONE PERSON ASSIST WHEN CHANGING LINENS. BED BATH WAS GIVEN AND A NEW GOWN HAS BEEN PLACED ON PATIENT. CALL LIGHT PLACED WITHIN REACH
[2025-06-15] MEDS ORDERED: MAGNESIUM OXIDE 400 MG TABLET PO SCH (09:34)
--- NOTE | 2025-06-15 10:41 | NUR ---
PATIENT IS LYING IN BED WITH EYES OPEN AND RESPIRATIONS ARE EVEN AND UNLABORED. PATIENT BRIEF CHANGED. BARRIER OINTMENT AND NEW ALEVYN PLACED ON THE COCCYX. BLANCHABLE REDNESS NOTED TO THE COCCYX AND BUTTOCKS. NEW DRAW SHEET AND CHUX PLACED. PATIENT STATED NO FURTHER NEEDS AT THIS TIME. CALL LIGHT AND PERSONAL BELONGINGS ARE WITHIN REACH.
--- NOTE | 2025-06-15 10:41 | NUR ---
MD ON FLOOR, UPDATED ON pt LOOSE STOOLS, SEVERAL PER RN. NEW ORDERS RECEIVED VERBALLY, REPEATED BACK TO VERIFY. TUBE FEED ADJUSTED TO 40 CC/HR. STOOL SAMPLE SENT AND ORDERS ENTERED. pt BOOSTED IN BED 2PA, CALL LIGHT AND PERSONAL SUPPLIES WITHIN REACH.
--- NOTE | 2025-06-15 11:03 | NUR ---
PATIENT IS LYING IN BED WITH HOB ELEVATED. PATIENT WITH EYES OPEN AND RESPIRATIONS ARE EVEN AND UNLABORED. CALL LIGHT AND PERSONAL BELONGINGS ARE WITHIN REACH. TV IS ON. PHYSICAL THERAPIST IS WALKING IN THE ROOM AT THIS TIME.
--- NOTE | 2025-06-15 12:23 | NUR ---
PATIENT IS LYING IN BED WITH HOB ELEVATED. PATIENT WITH EYES OPEN AND RESPIRATIONS ARE EVEN UNLABORED. PATIENT IS WATCHING TV. CALL LIGHT AND PERSONAL BELONGINGS ARE WITHIN REACH.
--- NOTE | 2025-06-15 13:40 | NUR ---
PATIENT IS LYING IN BED WITH EYES OPEN AND RESPIRATIONS ARE EVEN AND UNLABORED. HOB ELEVATED. PATIENT IS SPEAKING WITH A VISITOR AT BEDSIDE. CALL LIGHT AND PERSONAL BELONGINGS ARE WITHIN REACH.
--- NOTE | 2025-06-15 13:44 | NUR ---
HOURLY ROUNDING PATIENT VISITING WITH A FRIEND. NO REQUEST AT THIS TIME
--- NOTE | 2025-06-15 14:11 | NUR ---
PATIENT IS LYING IN BED WITH EYES OPEN AND RESPIRATIONS ARE EVEN AND UNLABORED. PATIENT IS WATCHING TV. CALL LIGHT AND PERSONAL BELONGINGS ARE WITHIN REACH.
--- NOTE | 2025-06-15 15:46 | NUR ---
PATIENT IS LYING IN BED WITH EYES OPEN AND RESPIRATIONS ARE EVEN AND UNLABORED. PATIENT IS SPEAKING WITH A VISITOR AT BEDSIDE. CALL LIGHT AND PERSONAL BELONGINGS ARE WITHIN REACH.
--- NOTE | 2025-06-15 16:07 | NUR ---
MEDICATION GIVEN, PATIENT HAS HAD VISITOR BUT SEEMED LIKE WOULD STILL BE HERE AWHILE SO WENT IN QUICK TO GIVE MEDICATION.
--- NOTE | 2025-06-15 16:14 | NUR ---
PATIENT IS LYING IN BED WITH EYES OPEN AND RESPIRATIONS ARE EVEN AND UNLABORED. PATIENT IS SPEAKING WITH A VISITOR WHO IS SITTING AT BEDSIDE. CALL LIGHT AND PERSONAL BELONGINGS ARE WITHIN REACH.
[2025-06-15] MEDS ORDERED: SOD PHOS MONO/SOD PHOS DIBAS 250 MG TAB PO SCH (17:00)
--- NOTE | 2025-06-15 17:00 | NUR ---
PATIENT HOB ELEVATED AT THIS TIME. PATIENT DINNER TRAY SET UP IN FRONT OF THE PATIENT. PATIENT WITH EYES OPEN AND RESPIRATIONS ARE EVEN AND UNLABORED. TV IS ON. PATIENT STATED NO FURTHER NEEDS AT THIS TIME. CALL LIGHT AND PERSONAL BELONGINGS ARE WITHIN REACH.
--- NOTE | 2025-06-15 18:04 | NUR ---
PATIENT IS LYING IN BED WITH HOB ELEVATED. PATIENT WITH EYES OPEN AND RESPIRATIONS ARE EVEN AND UNLABORED. PATIENT IS WATCHING TV. CALL LIGHT AND PERSONAL BELONGINGS ARE WITHIN REACH.
--- NOTE | 2025-06-15 18:20 | NUR ---
HOURLY ROUNDING PATIENT SITTING UP IN BED REQUEST WARM BLANKETS CALL LIGHT PLACED WITHIN REACH
--- NOTE | 2025-06-15 18:40 | NUR ---
INTO CLEAN UP PATIENTS ROOM.
--- NOTE | 2025-06-15 18:41 | NUR ---
PEG TUBE FLUSHED WITH 30 ML OF WATER. NEW SPLIT GAUZE PLACED UNDER THE PEG TUBE. DRESSING TO LLQ REPLACED WITH FRESH GAUZE AND TAPE. REDNESS TO THE ABDOMEN HAS DECREASED. PEG TUBE FEEDING STARTED AT 40 ML/HR. PATIENT WITH NO COMPLAINTS OF NAUSEA OR PAIN. PATIENT STATED NO FURTHER NEEDS AT THIS TIME. CALL LIGHT AND PERSONAL BELONGINGS ARE WITHIN REACH.
--- NOTE | 2025-06-15 19:30 | NUR ---
VERBAL REPORT RECEIVED BY PB DUNN. PATIENT IS RESTING IN BED EYES CLOSED RR EVEN AND UNLABORED. HOB ELEVATED. CALL LIGHT IN REACH.
--- NOTE | 2025-06-15 20:45 | NUR ---
CALL LIGHT ANSWERED. THIS PARK NATURALIST TOOK BED PARKER OFF FROM PATIENT. NOTICED SMEAR ON CHUX. MIKE CARE PERFORMED. ATTENDS ON. EMPTIED P.W. WALL CANISTER WITH 1200ML LIGHT YELLOW URINE. PATIENT HAS NO FURTHER NEEDS AT THIS TIME.
[2025-06-15] MEDS ORDERED: LANSOPRAZOLE 30 MG TABDIS PT SCH (21:00)
--- NOTE | 2025-06-15 21:41 | NUR ---
PATIENT RESTING IN BED AWAKE AT THIS TIME, WATCHING TV. MEDICATION ADMINISTRATION COMPLETE. CONTINUOUS PEG TUBE FEED AT 40 ML/HR. HOB EELVATED. PATIENT DENIES NEEDS AT THIS TIME. CALL LIGHT IN REACH.
--- NOTE | 2025-06-15 22:59 | NUR ---
PATIENT SITTING IN BED WATCHING TV WITH HOB ELEVATED. FRESH LINEN, PUREWICK AND BRIEF CHANGE. MIKE CARE PERFORMED. PATIENT DENIES ANY NEEDS AT THIS TIME. CALL LIGHT WITHIN REACH.
[2025-06-16] VITALS (9 sets, daily range): BP systolic 81–115; BP diastolic 53–63
--- NOTE | 2025-06-16 00:22 | NUR ---
PATIENT RESTING IN BED EYES CLOSED, RESPIRATIONS EVEN AND UNLABORED. CALL LIGHT IN REACH.
--- NOTE | 2025-06-16 02:22 | NUR ---
PATIENT RESTING IN BED EYES CLOSED, RR EVEN AND UNLABORED. NO NEEDS AT THIS TIME. CALL LIGHT IN REACH.
--- NOTE | 2025-06-16 04:05 | NUR ---
LLQ SURGICAL INCISION, 2CMX 0.3CM X 0.2CM, SCANT SANGUINOUS DRAINAGE. CLEANED WITH VASHE, SOME AREAS OF DRIED BLOOD REMAIN SURGICAL GLUE COVERS THE AREA. EDGES RED, VIABLE, PERIWOUND PINK, NO ODOR OR WARMTH. CAVILON ON PERIWOUND, GENTLE BORDER FOAM DRESSING PLACED. CHANGE EVERY 3 DAYS AND PRN. MAY USE A MORE ABSORBANT FOAM DRESSING IF NEEDED. RIGHT ABD HAS 3 LAP SITES WITH WELL APPROXIMATED EDGES, SURGICAL GLUE REMAINS IN PLACE OVER EACH WOUND. NO ODOR, WARMTH OR DRAINAGE. LEAVE YONATHAN. SACRAL AREA HAS A 8CM X 6.8 CM AREA OF INCONTINENCE-ASSOCIATED DERMATITIS WITH STAGE 2 ULCERS AT 9 O'CLOCK AND 12 O'CLOCK TO 1 O'CLOCK. BASE OF ULCERS ARE RED, EDGES VIABLE, MIKE WOUND PINK. SMALL SEROUS DRAINAGE, NO ODOR OR WARMTH. IAD AREA IS PINK, VIABLE EDGES WITH PINK PERIWOUND. AREA CLEANED WITH VASHE AND DEBRISOFT LOLLY. CAVILON PLACED, IODOSORB PLACED OVER ULCERATED AREAS, SACRAL GENTLE BORDER FOAM PLACED. CLEAN AND CHANGE EVERY 3 DAYS AND PRN. ENCOURAGE PT TO POSITION OFF OF SACRUM, PROVIDE WAFFLE MATTRESS. PT TOLERATD CARES WELL.
[2025-06-16 05:11] LABS: MCH 30.2 PG (25.7-32.2); MCHC 33.2 g/dL (32.3-36.5); MCV 90.8 fL (79.0-92.2); RBC 3.48 M/uL (4.63-6.08)
[2025-06-16 05:26] LABS: ALT (SGPT) 26.0 U/L (14-59); AST (SGOT) 28.0 U/L (15-37); EOSINOPHILS, MANUAL DIFF 4; GLOMERULAR FILTRATION RATE,EST 101.0 mL/min (>60); LYMPHOCYTES, MANUAL DIFF 31; MONOCYTES, MANUAL DIFF 14; NEUTROPHILS, MANUAL DIFF 51; PHOSPHORUS, INORGANIC 3.1 mg/dL (2.5-4.9); PROTEIN, TOTAL 5.4 g/dL (6.4-8.2); UREA NITROGEN 9.0 mg/dL (7-18)
--- NOTE | 2025-06-16 05:33 | NUR ---
PATIENT IS RESTING IN BED AWAKE AT THIS TIME. VSS. PATIENT DENIES ANY NEEDS AT THIS TIME. CALL LIGHT IN REACH.
[2025-06-16] MEDS ORDERED: levoFLOXacin 500 MG TAB PO SCH (06:00)
--- NOTE | 2025-06-16 07:01 | NUR ---
STOOL GATHERED, HEMMOCCULT NEGATIVE. PATIENT REPOSITIONED IN BED. FRESH ICE WATER PROVIDED. PEG TUBE FLUSHED WTIH 30 ML OF TAP WATER. CALL LIGHT IN REACH.
--- NOTE | 2025-06-16 07:43 | NUR ---
THIS RN RECEIVED REPORT FROM OFE/ALLEN - NIGHTSHIFT RNS. PATIENT RESTING IN BED AT THIS TIME, TUBE FEEDINGS INFUSING AT 40ML/HR. WILL REVIEW DIET ORDER; TUBE FEEDING PUMP CLEARED AT START OF SHIFT FOR 525ML. PT DENIES PAIN AT THIS TIME, RESTING COMFORTABLY WATCHING TV THIS MORNING. PUREWICK IN PLACE WITH CLEAR YELLOW URINE IN CANISTER. ALL PT CARE NEEDS MET, CALL LIGHT WITHIN REACH. WILL ALLOW PATIENT TO REST AND WILL BE BACK SHORTLY.
--- NOTE | 2025-06-16 08:42 | NUR ---
THIS RN IN FOR MORNING MEDS. ASSESSMENT COMPLETED AT THIS TIME. PT TAKES MEDS X2 AT A TIME WITH WATER, NO ISSUES SWALLOWING THOSE. PT DENIES PAIN AT THIS TIME, REQUESTED SOME CREAM OF WHEAT WHICH BANKING TEACHER WAS CALLING DIETARY TO GET ORDERED FROM DIETARY. PT DENIES ANY OTHER NEEDS AT THIS TIME, CALL LIGHT WITHIN REACH.
--- NOTE | 2025-06-16 09:11 | NUR ---
CALLED [facility] FOR FOLLOW-UP. PATIENT IS SCHEDULED FOR CHEMO AND F/U APPOINTMENT TOMORROW AT 1000. [facility] STATES THEY CAN NOT TAKE PATIENT IF HE CONTINUES CHEMO TREATMENT AND SHE HAS NO PRIVATE ROOMS FOR ISOLATION IF HE NEEDS NEUTROPENIC PRECAUTIONS, WHICH HE DOES NOT CURRENTLY NEED. WERE PREVIOUSLY UNDER THE IMPRESSION THAT PATIENT'S CHEMO TREATMENTS WERE ON HOLD. CALLED FOR BED AVAILABILITY AT [facility]. MESSAGE LEFT WITH DYLLAN.
--- NOTE | 2025-06-16 09:38 | NUR ---
PATIENT STATES HE IS PLACING A HOLD ON HIS CHEMO UNTIL AFTER SNF STAY. STATES HE "CAN NOT GO HOME." DISCUSSED HIS NEED FOR A PRIVATE ROOM FOR NEUTROPENIC PRECAUTIONS TO KEEP HIM FROM GETTING SICK. INFORMED HIM [facility] DOES NOT HAVE PRIVATE ROOMS. STATES HE WILL GO WHERE HE NEEDS TO. ATTEMPT TO CONTACT [facility], MESSAGES LEFT. REFERRAL FAXED TO [facility], [facility].
--- NOTE | 2025-06-16 10:24 | NUR ---
SPOKE WITH [facility] AGAIN, AT [facility]. THEY CAN ACCEPT PATIENT TOMORROW MORNING INTO A PRIVATE ROOM, THEY WILL NEED TIME TO MOVE ROOMS AROUND. ORDERS PROVIDED TO DR. CAMPOS. PATIENT IS CALLING CANCER CLINIC TO SCHEDULE A FOLLOW-UP. CLINICALS WERE SENT TO [facility] AT [phone].
--- NOTE | 2025-06-16 10:31 | NUR ---
THIS RN INTO ROOM TO WORK WITH PATIENT WITH PT. PT BECAME NAUSEATED WHEN BEGINNING WITH PT, PT STATES HE FEELS HE MAY HAVE JUST ATE HIS FOOD TO QUICKLY THIS MORNING, PRN MEDS GIVEN FOR NAUSEA - SEE SEP. PT AMBULATED WITH THIS RN/PT, WE DID HAVE CHAIR BEHIND PATIENT WITH PROCESS OPERATOR ASSISTANCE. PT NOW BACK IN ROOM WITH PT, WORKING ON MORE EXERCISES. PT STATES NAUSEA IS DOING BETTER AT THIS TIME, LEFT PATIENT WITH PT-MAGNO.
--- NOTE | 2025-06-16 13:18 | NUR ---
FEEDING STOPPED AT THIS TIME, CLEARED 217ML. FLUSHED WITH 30ML WATER AND CAP PLACED. PUREWICK REMAINS IN PLACE WITH YELLOW/SEDIMENT URINE IN CANISTER. PT TOLERATED LUNCH, DENIES NAUSEA AFTER LUNCH NOW, STATES NAUSEA IMPROVED AFTER WALKING AND WITH MORNING NAUSEA MEDS. PT DENIES ANY NEEDSAT THIS TIME. [facility] PT ALLOWED TO CONTINUE WATCHING TV SITTING UP IN CHAIR.
--- NOTE | 2025-06-16 13:33 | NUR ---
MD INFORMED OF LOW BP 81/53, PT IS ASYMPTOMATIC AT THIS TIME, SITTING UP WATCHING TV, JUST FINISHING HIS LUNCH. TUBE FEEDING JUST COMPLETED, FLUSHED WITH 30ML. HASNT BEEN DRINKING ALOT OF WATER, MAYBE 100ML THIS SHIFT. PER MD, INCREASE SALT/WATER INTAKE, ALSO INCREASE HIS FLUSHES BY 200ML EACH FLUSH. ORDER FOR DIETARY UPDATED REGARDING THE FLUSHES, PT ENCOURAGED TO DRINK MORE WATER. NO OTHER CONCERNS/ORDERS AT THIS TIME.
--- NOTE | 2025-06-16 15:00 | NUR ---
ADMITTED PT SHE WAS ABLE TO STAND AND SIT TO BED WITH STAND BY ASSISTANCE. PRESENT. PT C/O BEING COLD PROVIDED WARM BLANKETS TO PT AND . ROOM TEMP TURNED UP ALSO. CALL LIGHT WITHIN REACH AND BED IN LOW POSITION. SIDE RAILS X 2. PROVIDED HOT CURTIS TO PATIENT AND DUE TO THEY WHERE COLD. 1529 PT SON BROUGHT SOME OUTSIDE FOOD TO PT AT THIS TIME. HE DID NOT HAVE ANY QUESTIONS
--- NOTE | 2025-06-16 15:30 | NUR ---
PT SITTING UP IN THE CHAIR, HAS NO C/O AT THIS TIME.
--- NOTE | 2025-06-16 16:41 | NUR ---
PT REMAINS UP IN THE CHAIR PUSHED CALL LIGHT BY MISTACKS. NO NEEDS NEDED AT THIS TIME.
--- NOTE | 2025-06-16 17:19 | NUR ---
PT SITTING UP IN CHAIR EATTING DINNER RYANN-WELL SO FAR. TO MEDICATINS ONE AT A TIME AND DID WELL WITH THIS.
--- NOTE | 2025-06-16 17:51 | NUR ---
PT C/O NAUSEA AT THIS TIME, GAVE 4MG ZOFRAN AT THIS TIME. AND EXPLAINED TO PT THAT HE NEEDS TO STOP EATTING.
--- NOTE | 2025-06-16 19:02 | NUR ---
STARTED TUB FEEDING AT THIS TIME AT 40MLS/HR
--- NOTE | 2025-06-16 19:34 | NUR ---
VERBAL REPORT RECEIVED BY PERRY DUNN. PATIENT IS RESTING AWAKE IN BED WATCHING TV. PATIENT DENIES ANY CURRENT NEEDS AT THIS TIME. CALL LIGHT IN REACH.
--- NOTE | 2025-06-16 21:20 | NUR ---
PATIENT IS SITTING UP IN BED WATCHING TV. CONTINUOUS FEEDING VIA PEG TUBE RUNNIONG AT THIS TIME 40 ML/HR. PEG TUBE FLUSHED WITH 230 ML OF TAP WATER. PATIENT DENIES ANY FURTHER NEEDS AT THIS TIME. HOB ELEVATED. CALL LIGHT IN REACH.
--- NOTE | 2025-06-16 22:55 | NUR ---
PATIENT IS RESTING IN BED AWAKE AT THIS TIME, WATCHING TV. WARM BLANKET PROVIDED PER PATIENT REQUEST. NO FURTHER NEEDS AT THIS TIME. CALL LIGHT WITHIN REACH.
--- NOTE | 2025-06-17 00:16 | NUR ---
PATIENT RESTING IN BED EYES CLOSED RR EVEN AND UNLABORED. CALL LIGHT WITHIN REACH.
--- NOTE | 2025-06-17 01:35 | NUR ---
PATIENT IS RESTING IN BED EYES CLOSED, RR EVEN AND UNLABORED. CONTINUOUS PEG TUBE FEEDING RUNNIN AT 40ML/HR. NO NEEDS AT THIS TIME. CALL LIGHT WITHIN REACH.
--- NOTE | 2025-06-17 02:50 | NUR ---
PATIENT RESTING IN BED EYES CLOSED, RR EVEN AND UNLABORED. CALL LIGHT WITHIN REACH.
--- NOTE | 2025-06-17 03:40 | NUR ---
PATIENT RESTING IN BED EYES CLOSED, RR EVEN AND UNLABORED. CALL LIGHT WITHIN REACH.
--- NOTE | 2025-06-17 04:17 | NUR ---
PATIENT IS RESTING IN BED EYES CLOSED BREATHING EVEN AND UNLABORED. CALL LIGHT WITHIN REACH.
[2025-06-17 05:18] VITALS: BP 92/50
[2025-06-17 05:26] LABS: MCH 30.2 PG (25.7-32.2); MCHC 33.3 g/dL (32.3-36.5); MCV 90.5 fL (79.0-92.2); RBC 3.28 M/uL (4.63-6.08)
--- NOTE | 2025-06-17 05:34 | NUR ---
PATIENT REPOSITIONED IN BED. CONTINUOUS FEEDING VIA PEG TUBE RUNNING AT 40 ML/HR. PEG TUBE FLUSHED WITH 230 ML OF TAP WATER. FRESH ICE WATER PROVIDED. NO FURTHER NEEDS AT THIS TIME. CALL LIGHT WITHIN REACH.
[2025-06-17 05:51] LABS: ALT (SGPT) 28.0 U/L (14-59); AST (SGOT) 28.0 U/L (15-37); GLOMERULAR FILTRATION RATE,EST 102.0 mL/min (>60); PROTEIN, TOTAL 5.4 g/dL (6.4-8.2); UREA NITROGEN 10.0 mg/dL (7-18)
[2025-06-17 05:55] LABS: BANDS, MANUAL DIFF 3; LYMPHOCYTES, MANUAL DIFF 45; MONOCYTES, MANUAL DIFF 4; NEUTROPHILS, MANUAL DIFF 48
--- NOTE | 2025-06-17 06:45 | NUR ---
PATIENT RESTING IN BED AWAKE AT THIS TIME ATCHING TV. RR EVEN AND UNLABORED. PATIENT DENIES ANY NEEDS AT THIS TIME. CALL LIGHT WITHIN REACH.
--- NOTE | 2025-06-17 07:08 | NUR ---
VERBAL REPORT RECEIVED FROM SHAUN VILLA AND SHAUN MYERS. PT RESTS IN BED AWAKE, CALL LIGHT IN REACH, NO REQUESTS AT THIS TIME.
--- NOTE | 2025-06-17 08:51 | NUR ---
PEG-TUBE FLUSHED WITH 350 MLS OF WATER. DRAIN GAUZE TO PEG-TUBE CHANGED. TUBE FEEDING CONTINUES. HOB AT 30 DEGREES.
[2025-06-17 09:15] VITALS: BP 108/68
--- NOTE | 2025-06-17 09:16 | NUR ---
CALLED CANCER CLINIC TO VERIFY LAST CHEMO INFUSION WAS 06/02/2025. [facility] CAN TAKE PATIENT AT 1PM TODAY.
--- NOTE | 2025-06-17 09:18 | NUR ---
PATIENT IS LAYING IN BED. PATIENT WAS PROVIDED WITH A WARM WASHCLOTH AND PREFORMED ORAL CARE ON HIS DENTURES. PATIENTS VITAL SIGNS AND I&OS WERE DONE. PATIENT DECLINED TO GET INTO CHAIR. CALL LIGHT IS WITHIN REACH AND NO FURTHER NEEDS AT THIS TIME.
--- NOTE | 2025-06-17 09:31 | NUR ---
SPOKE WITH PATIENT. HE IS GOING TO HAVE A FRIEND PICK HIM UP AT 1 TO TRANSPORT HIM TO [facility] FOR SNF. NO FURTHER QUESTIONS OR CONCERNS.
--- NOTE | 2025-06-17 11:24 | NUR ---
DC SUMMARY, ORDERS, PASRR, EMAR ADMIN REPORT FAXED TO [facility]
--- NOTE | 2025-06-17 12:42 | NUR ---
TUBE FEEDING COMPLETE. G-TUBE FLUSHED WITH 350 MLS OF WATER AND CAPPED FOR DISCHARGE. IV REMOVED, TIP INTACT, GAUZE AND COBAN DRESSING APPLIED TO SITE. PT TOLERATED WELL. PT ASSISTED TO DRESS AND DON RLE PROSTHETIC.
--- NOTE | 2025-06-17 13:27 | NUR ---
PT LEAVES MED-SURG VIA WHEELCHAIR, ESCORTED BY JIMMY HERNANDEZ, TO PRIVATE CARE DRIVEN BY FRIEND, FOR TRANSPORTATION TO [facility]. PT HAVE CLOTHES, RIGHT PROSTHETIC, BOOTS, SHORTS, SHIRT, BELT, SUSPENDERS, WAFFLE OVERLAYER, PHONE AND BLACK CASE WITH HIM.
--- NOTE | 2025-06-17 13:53 | NUR ---
TELEPHONE REPORT PROVIDED TO SHAUN GUERRERO AT [facility]
--- NOTE | 2025-06-17 16:36 | NUR ---
REQUEST FROM [facility] FOR FURTHER CLINICAL INFORMATION. FAXED TO [facility] AT [phone]. DC SUMMARY, LABS, PT/OT NOTES, NUTRITION NOTES.
== END 2025-06-17 13:25 | DRG 689 ==
LOC: ED 12:49 → MS 19:32
PROVIDERS: Emergency Medicine; Internal Medicine; ADMIT Student in an Organized Health Care Education/Training Program; ATTEND Student in an Organized Health Care Education/Training Program
DX: N39.0 Urinary tract infection, site not specified (principal); D61.810 Antineoplastic chemotherapy induced pancytopenia; C15.9 Malignant neoplasm of esophagus, unspecified; E87.6 Hypokalemia; E86.0 Dehydration; D64.9 Anemia, unspecified; R62.7 Adult failure to thrive; I95.9 Hypotension, unspecified; T45.1X5A Adverse effect of antineoplastic and immunosuppressive drugs, initial encounter; Z79.82 Long term (current) use of aspirin; Z87.891 Personal history of nicotine dependence; Z79.899 Other long term (current) drug therapy; Z68.25 Body mass index [BMI] 25.0-25.9, adult; Z86.69 Personal history of other diseases of the nervous system and sense organs; Z93.1 Gastrostomy status
CPT/HCPCS: 36415; 80048; 80053; 81001; 82550; 82607; 83036; 83550; 83735; 84100; 84439; 84443; 84484; 85025; 86140; 87088; 87186; 93005; 93010; 96361; 96365; 96366; 97116; 97163; 97166; 97530; 97535; 99284-25; A9270; J0696; J1650; J2405; J3475; J3480; J7030; J7060; J7121